=== PATIENT | male | born 1950 ===

== ENCOUNTER 2022-01-06 18:16 | Emergency (ER) | payer OTHER, BC ==
[2022-01-06 19:07] VITALS: TEMP 98.6; BMI 30.7
[2022-01-06] MEDS ORDERED: SODIUM CHLORIDE 0.9% 1000 ML INFUS.BAG IV ONE (19:20)
[2022-01-06 20:37] LABS: BASO % 0.6 % (0-2.0); EOS % 5.9 % (0-4.5); HEMATOCRIT 38.7 % (35.4-49); HEMOGLOBIN 13.5 GM/dL (11.7-16.9); MCH 32.7 pg (25.7-33.7); MEAN CELL VOLUME 93.6 fl (80-96); NEUT % 63.5 % (42.8-82.8); RBC 4.13 M/mm3 (4.00-5.60); RDW 13.8 % (11.9-15.9)
[2022-01-06 20:50] LABS: CALCIUM 8.6 mg/dL (8.5-10.1)
[2022-01-06 20:51] LABS: ALBUMIN 4.1 g/dl (3.4-5.0); BLOOD UREA NITROGEN 24.3 mg/dL (7-18)
[2022-01-06 20:54] LABS: CREATININE 1.4 mg/dL (0.55-1.3)
[2022-01-06 20:55] LABS: BILIRUBIN,TOTAL 0.5 mg/dL (0.2-1)
[2022-01-06 20:56] LABS: TOT PROT 7.2 g/dl (6.4-8.2)
[2022-01-06 21:32] LABS: MEAN PLT VOLUME 7.7 fl (7.5-11.1); PLATELET COUNT 164 10^3/uL (134-434); PLATELET ESTIMATE ADEQUATE; WHITE BLOOD COUNT 7.6 K/mm3 (4.0-10.0)
[2022-01-06 23:52] VITALS: BP 138/78; PULSE 84
== END 2022-01-06 23:52 | disposition short-term general hospital (02) ==
LOC: JER 18:16
DX: R55 Syncope and collapse (principal); F10.10 Alcohol abuse, uncomplicated; S12.500A Unspecified displaced fracture of sixth cervical vertebra, initial encounter for closed fracture; W01.0XXA Fall on same level from slipping, tripping and stumbling without subsequent striking against object, initial encounter
CPT/HCPCS: 36415; 70450-TC; 71045-TC-FY; 72125-TC; 80053; 84484; 85025; 93005; 93010; 99291; C9803-CS; U0003; U0005